=== PATIENT | female | born 1935 | race Caucasian/White ===

== ENCOUNTER 2016-04-15 00:20 | Day surgery (SDC) | payer MEDICARE, OTHER ==
[~2016-04-15] VITALS: Ht 162.6 cm; Wt 61.0 kg
[2016-04-15] VITALS (13 sets, daily range): BP systolic 121–149; BP diastolic 48–75; PULSE 56–74; RESP 16; O2SAT 92–99
[~2016-04-15 00:20] MED LIST: AMLO10TA3 PO; ASPI-973 PO; BENZ100C8 PO; CALC600T12 PO; CHOL100045 PO; CLOP75TA28 PO; CYAN500 PO; NITR0.4T SL; OMEG-38 PO; OMEP20CA11 PO; POTA-62 PO; PREC VG; RANI150C4 PO; VITA400C64 PO
[2016-04-15] MEDS ORDERED: Vancomycin Inj 1,000 MG in IV Premix 1 EACH IV SCH (10:30)
[2016-04-15 10:58] LABS: BASOPHILS % (AUTO) 0.6 % (0-3); EOSINOPHILS % (AUTO) 1.6 % (0-5); Mean Corpuscular Volume 84.9 fL (81-100); NEUTROPHILS % (AUTO) 70.1 % (40-74); Platelet Count 233 bil/L (150-400)
[2016-04-15] MEDS ORDERED: ATOR40TA69 PO (11:20)
[2016-04-15] MEDS ORDERED: FERR-74 PO (11:20)
[2016-04-15] MEDS ORDERED: Vancomycin 1,000 mg/200 mL D5W IV ONE (11:25)
[2016-04-15 11:27] LABS: INR 0.95 ratio
[2016-04-15] MEDS ORDERED: Bupivacaine-MPF 0.5% 30 mL Inj ONE (11:56)
[2016-04-15] MEDS ORDERED: 0.9% Sodium Chloride 250 ML ONE (11:56)
[2016-04-15] MEDS ORDERED: Heparin 5,000 Units/500 mL NS Premix IV ONE (11:56)
[2016-04-15] MEDS ORDERED: Water for Injection 50 ML IV ONE (12:06)
[2016-04-15] MEDS ORDERED: fentaNYL-PF 50 mCg/mL 2 mL Inj ONE (12:06)
[2016-04-15] MEDS ORDERED: Vancomycin 1,000 mg Inj ONE (12:06)
[2016-04-15] MEDS: 0.9% Sodium Chloride 1,000 ML IV SCH (13:26)
[2016-04-15] MEDS ORDERED: HYDROcodone-APAP 5-325 mg Tablet PO PRN (13:30)
[2016-04-15] MEDS ORDERED: Ondansetron 2 mg/mL 2 mL Inj IVPUSH PRN (13:30)
--- NOTE | 2016-04-15 14:44 | DRSVH ---
PROCEDURE: X-RAY CHEST ONE VIEW, PORTABLE ([id number]) INDICATIONS: For new leads placed TECHNIQUE: One view of the chest was acquired. COMPARISON: [facility], CR, XR CHEST 1VW (PORTABLE), 03/12/2016, 11:03. FINDINGS: Surgical changes and devices: Dual chamber right cardiac pacemaker has been placed. Lungs and pleura: No pleural effusions or pneumothorax. Lungs are clear. Mediastinum: Mediastinal contours appear normal. Heart size is enlarged. Bones and chest wall: No suspicious bony lesions. Overlying soft tissues appear unremarkable. IMPRESSION: No immediate complications status post cardiac pacemaker placement. Dictated by: Louis MOREL Interpreted: Elliott Beatty MD on 04/15/2016 at 14:43 Transcribed by: JENNIFER on 04/15/2016 at 14:43 Approved by: Glen Beatty M.D. on 04/15/2016 at 14:51
--- NOTE | 2016-04-15 14:54 | OP ---
[address] [address] OPERATIVE REPORT PATIENT: RONY MACHADO : 1935 MR#: [id number] ADMIT: 04/15/2016 JOB ID: [id number] DATE OF SURGERY: 04/15/2016 PREOPERATIVE DIAGNOSIS(ES): Sick sinus syndrome. POSTOPERATIVE DIAGNOSIS(ES): Sick sinus syndrome. PROCEDURES PERFORMED: 1. Dual-chamber pacemaker implantation. 2. Fluoroscopy. SURGEON: Gilberto Beverly MD, electrophysiology attending. INDUSTRIAL ECONOMIST: Taiwo Alvarez. IMPLANTED DEVICES: 1. [employer] pulse generator, model PM 2240, serial #[id number]. 2. Right atrial lead [employer] 2088 TC, 46 cm, serial CAT [id number]. 3. RV lead is a [employer] 2088 TC, 52 cm, serial #[id number]. ANESTHESIA: Bolus dosing of Versed and fentanyl to achieve an appropriate level of sedation. INDICATION: The patient is a pleasant 80-year-old woman with coronary artery disease, preserved LV function and sick sinus syndrome. After discussion of the risks and benefits of pacemaker implantation, she opted to proceed. PROCEDURAL DESCRIPTION: After informed consent, the patient was taken to the EP laboratory in a fasting nonsedated state, where she was prepped and draped in the usual sterile fashion. The right deltopectoral region was infiltrated with 40 cc of a 50/50 mixture of bupivacaine and lidocaine. Once adequate anesthesia had been achieved, a 3 cm incision was performed 2 cm medial to the right deltopectoral groove. Dissection was carried down to the pectoralis fascia. The pocket was then fashioned using a combination of electrocautery and blunt dissection. Once adequate hemostasis had been achieved, access to the right axillary vein was gotten over the first rib with a micropuncture needle twice to deploy two 0.035, 3 mm J guidewires. Over the first of these, a 6-Jamaican tear-away sheath was advanced. Once the guidewire was removed, an active fixation lead was advanced to the RV outflow tract and ultimately the RV apex. The lead was affixed in position using associated fixation screw. It was connected to the external analyzer and demonstrated appropriately sensed R waves, impedance, capture threshold. Lead was checked to 10 V and there was no evidence of diaphragmatic stimulation. Attention was now paid to his right atrial lead. Over the other previously J guidewire, another 6-Jamaican tear-away sheath was advanced. Once the sheath was removed, an active fixation lead was advanced to the right atrial appendage. It was affixed in position using an associated fixation screw. It was connected to the external analyzer and demonstrated appropriately sensed P waves, impedance, capture threshold. Lead was checked to 10 V and there was no evidence of diaphragmatic stimulation. Once the position and redundancy of both leads were confirmed with multiple fluoroscopic views, the leads were anchored to the prepectoralis fascia using their associated anchoring sleeves and two heavy Ethibond sutures. The pocket was then copiously irrigated with antibiotic solution. The leads were connected to a generator and the generator was placed in the pocket and affixed to the floor of the pocket using 1-0 Ti-Cron suture. The incision was then closed with running layers of absorbable suture. The wound was dressed with skin adhesive and a small dressing. At the end of procedure, the needle, sponge and instrument counts were all correct. COMPLICATIONS: None. ESTIMATED BLOOD LOSS: Negligible. DEVICE MEASURED DATA: 1. Right atrial lead 4.7 mV, 480 ohms, 0.5 V at 0.4 msec. 2. RV lead 9.4 mV, 560 ohms, 0.5 V at 0.4 msec. FINAL PROGRAM PARAMETERS: DDD 60-130 beats per minute. IMPRESSION: Successful dual-chamber pacemaker implantation. PLAN: 1. Stat portable chest x-ray. 2. PA and lateral chest x-ray in the morning. 3. . 4. Vancomycin . 5. Doxycycline 100 p.o. daily x7 days. 6. Wound check in one week. ATTENDING STATEMENT: Gilberto Beverly MD, electrophysiology attending was present for and supervised/performed all aspects of this procedure.
--- NOTE | 2016-04-15 16:30 | NUR ---
Transfer from [facility] Patient arrived from [facility] in bed, alert and oriented x 3. Patient is hard of hearing and a little slow to respond. Patient has a dressing on Rt side of chest over pacemaker site. On arrival patient reporting pain 5/10 at site. Tylenol 975mg given-pain reduced to 0/10. Sling in place to stabilize arm and minimize movement. Stand by assist to bathroom.
[2016-04-16] MEDS: 0.9% Sodium Chloride 1,000 ML IV SCH (00:39)
--- NOTE | 2016-04-16 01:04 | NUR ---
Pacer Site Pts pacer site has remained c/d/i all shift so far. Pt has reported minimal discomfort to site, and says it is mostly associated with arm movement. Arm has remained in sling all shift. Pt received vicodin for arm pain and reports alleviation of symptoms. No swelling or hematoma noted around dressing.
[2016-04-16 01:12] VITALS: BP 135/64; PULSE 64; RESP 18; O2SAT 95
[2016-04-16] MEDS ORDERED: Vancomycin Inj 1,000 MG in IV Premix 1 EACH IV ONE (01:30)
[2016-04-16 04:34] VITALS: BP 157/62; PULSE 60; RESP 18; O2SAT 92
[2016-04-16] MEDS ORDERED: Pantoprazole 20 mg ER24 Tablet PO SCH (06:30)
[2016-04-16] MEDS ORDERED: Potassium Chloride 20 mEq SR Tablet PO SCH (08:00)
--- NOTE | 2016-04-16 08:42 | PCM.DIMED ---
Discharge Instructions Date of Service Apr 16, 2016 Dates of Hospitalization Discharge Diagnosis Discharge Diagnosis Sick Sinus Syndrome Sinus Node Pauses Sinus Bradycardia Coronary Artery Disease Hypertension Diet Heart Healthy Activity Other (Keep incision dry one day. Do not extend right elbow high above shoulder for one month. Do not lift, push or pull more than 10 lbs with the right arm for one month.) Call your provider Fever or Chills, Bleeding, Excessive diarrhea Patient Instructions Follow-up in: 1 week Mid-level Provider (F9): Ramos Carrera PA-C Follow-up with Mid-level in: 6 weeks Ramos Carrera PA-C Apr 16, 2016 08:42
[2016-04-16] MEDS ORDERED: DOXY100C2 PO (08:55)
--- NOTE | 2016-04-16 09:16 | NUR ---
Social Work-initial assessment/ discharge: Data:See initial assessment. Pt is a 80 y/o female who was admitted for sic sinus syndrome per H&P. Pt's insurance is [employer] and PCP is Garfield Recio MD. EMR reviewed. SW met with pt at bedside to discuss discharge planning, SW role explained. Pt is alert and oriented x3. Pt reside sat home with her in [place] where she remains independent with ADLS. Pt does not drive and use sa no DME at home. Pt has no HH Or SNF history. Pt has no prison care or VA benefits. SW discussed DPOA/ advanced directive paperwork, Pt states she has never completed this, SW provided her with paperwork. Pt has been up independent in her room. Pt to discharge home today. Pt's to provide transport home. SW provided phone number and plan on white board. No discharge needs identified. All updated and agreeable to plan. Assessment:Pt who is independent at baseline. Plan:Pt to discharge home today via POV. No discharge needs identified. All updated and agreeable to plan. FAM Sy Addendum: 04/16/16 at 0922 by AUTUMN LEE Amended: Links added.
--- NOTE | 2016-04-16 09:22 | DIS ---
[address] [address] DISCHARGE SUMMARY PATIENT: RONY MACHADO : 1935 MR#: [id number] ADMIT: 04/15/2016 JOB ID: [id number] DIS: CHIEF COMPLAINT: Slow pulse rate, lightheadedness and near syncope. BRIEF HISTORY: The patient is a very pleasant 80-year-old woman known to have coronary artery disease and who had a prior PCI. She has preserved left ventricular function and bradycardia. Monitoring has shown sinus rates in the 30s and pauses up to 4 seconds. The patient has been symptomatic with lightheadedness and near syncope despite beta-blockers being stopped. She was advised of her need for a pacemaker and was agreeable. COURSE IN HOSPITAL: The patient was admitted through the [facility] and taken to the catheterization laboratory, where she received the dual-chamber cardiac pacemaker implant on the right side without incident. She was taken back to the [facility] for recovery from sedation and then transferred up to the third floor [facility] for overnight observation and telemetry monitoring. She did well overnight and in the morning was ambulatory without difficulty. The pacemaker site was closed and dry. There was no hematoma. Device testing showed excellent capture and sensing thresholds, and 81% atrial pacing. A chest x-ray showed good lead positions and no pneumothorax. She felt well for discharge home. She denied any lightheadedness or near syncope, and did not have significant pain or tenderness at the pacemaker site. DISPOSITION: The patient was discharged home in good condition with a followup appointment at the [facility] office in one week. She was asked not to get the incision wet for one day and not to extend her right elbow above her right shoulder for one month. She was also asked not to lift, push, or pull more than 10 pounds with the right arm for one month. She will follow a heart healthy diet and take medications as prescribed. DISCHARGE MEDICATIONS: 1. Doxycycline 100 mg daily. 2. Amlodipine 10 mg daily. 3. Aspirin 81 mg daily. 4. Atorvastatin 40 mg daily. 5. Benzonatate 100 mg t.i.d. 6. Clopidogrel 75 mg daily. 7. Ferrous sulfate 324 mg daily. 8. Omeprazole 20 mg daily. 9. Potassium chloride ER 20 mEq daily. 10. Ranitidine 150 mg b.i.d. FINAL DIAGNOSES: 1. Sick sinus syndrome with sinus bradycardia and sinus node pauses. 2. Coronary artery disease. 3. Hypertension.
[2016-04-16 10:08] VITALS: BP 150/64; PULSE 59; RESP 18; O2SAT 90
--- NOTE | 2016-04-16 10:13 | DRSVH ---
PROCEDURE: X-RAY CHEST, TWO VIEWS ([id number]) INDICATIONS: For new lead placement TECHNIQUE: 2 views of the chest were acquired. COMPARISON: [facility], CR, XR CHEST 1VW (PORTABLE), 12/19/2015, 18:58. FINDINGS: Surgical changes and devices: Stable positioning of dual chamber right cardiac pacemaker. Lungs and pleura: No pleural effusions or pneumothorax. Lungs are clear, aside from mild scarring a t the left lung base. Mediastinum: Mediastinal contours are normal. Heart size is normal. Bones and chest wall: No suspicious bony abnormalities. Soft tissues appear unremarkable. IMPRESSION: Stable chest post pacer placement. Dictated by: Louis Payne RR Interpreted: Missy Back MD on 04/16/2016 at 10:11 Transcribed by: WYATT on 04/16/2016 at 10:12 Approved by: Missy Back MD, PhD on 04/16/2016 at 10:54
--- NOTE | 2016-04-16 13:09 | NUR ---
Discharge Patient departed unit via wheelchair accompanied by spouse and staff. Patient alert and oriented, denied SOB, abd discomfort, chest pain & nausea. Patient able to ambulate in room and hallway. Circulatory function, breathing and activity within normal limits. Patient reporting some tenderness to touch at pacemaker site. No anxiety noted. Discharge instructions/medications reviewed with patient/spouse prior to discharge. All questions addressed. Patient belonging and discharge instructions in hand. Prescription sent to [facility]. Addendum: 04/16/16 at 1519 by TIM GANDARA Dressing removed prior to discharge by MELISSA Roper.
== END 2016-04-16 12:45 | disposition home or self-care (01) ==
LOC: SPI 00:20 → MPC 16:09 → SPI 04-16 12:45
PROVIDERS: ATTEND Internal Medicine Cardiovascular Disease
DX: I49.5 Sick sinus syndrome (principal); I25.10 Atherosclerotic heart disease of native coronary artery without angina pectoris; I35.1 Nonrheumatic aortic (valve) insufficiency; I10 Essential (primary) hypertension; E78.2 Mixed hyperlipidemia; Z79.82 Long term (current) use of aspirin; Z79.02 Long term (current) use of antithrombotics/antiplatelets; Z98.61 Coronary angioplasty status
CPT/HCPCS: 33208; 36415; 71010; 71020; 80048; 85025; 85610; 93005; 99152; 99153; C1769; C1785; C1892; C1898; J1644; J2250; J3010; J3370; J7030; J7050